=== PATIENT | female | born 1955 | race Caucasian/White ===

== ENCOUNTER 2017-02-05 09:58 | Inpatient (IN) ==
[2017-02-05] MEDS ORDERED: MORPHINE 2 MG/1 ML SYRINGE IV PRN (12:18)
[2017-02-05] MEDS ORDERED: ONDANSETRON 4 MG/2 ML VIAL IV PRN (12:18)
[2017-02-05] MEDS ORDERED: ALBUTEROL 2.5 MG/3 ML NEB RESP TX PRN (12:18)
[2017-02-05 12:23] LABS: ABG Base Excess -4.5 MMOL/L (-2.5-2.5); ABG HCO3 21.1 MMOL/L (20-26); ABG Oxygen Saturation 99.7 % (95-100); ABG PCO2 40.9 MM HG (35-48); ABG PH 7.331 (7.35-7.45); ABG TCO2 22.4 MMOL/L (23-27)
[2017-02-05 12:24] LABS: Basophils % 0.2 % (0.0-0.8); Hematocrit 40.6 VOL% (35.7-47.0); Hemoglobin 13.5 GM/DL (12.0-16.0); Immature Granulocytes % 0.8 %; Immature Granulocytes Absolute 0.17 #; Lymphocytes # 1.2 10*3/uL (1.4-4.0); Lymphocytes % 5.5 % (21.3-54.2); Mean Corpuscular HGB Conc 33.3 GM/DL (32-36); Mean Corpuscular Hemoglobin 30 PG (27-34); Mean Corpuscular Volume 90.8 FL (87-102); Mean Platelet Volume 9.7 FL (9.6-12.0); Monocytes # 2.2 10*3/uL (0.11-0.8); Monocytes % 10.1 % (1.7-12.7); Neutrophils # 18.3 10*3/uL (1.4-7.4); Neutrophils % 83.4 % (38.7-73.9); Platelet Count 384 T/CUMM (130-400); Red Blood Count 4.47 MC/CUMM (3.8-5.5); Red Cell Distribution Width 12.6 % (9.3-17.3); White Blood Count 21.9 T/CUMM (4-12)
[2017-02-05] MEDS ORDERED: ACETAMINOPHEN 500 MG TABLET PO PRN (12:26)
[2017-02-05] MEDS ORDERED: PANTOPRAZOLE 40 MG VIAL IV SCH (12:30)
[2017-02-05] MEDS ORDERED: PROPOFOL 1,000 MG/100 ML BOTTLE IV SCH (12:30)
[2017-02-05] MEDS ORDERED: cefTRIAXone 2,000 MG in SODIUM CHLORIDE 0.9% 100 ML IV SCH (12:30)
[2017-02-05] MEDS ORDERED: LACTATED RINGERS 1,000 ML IV SCH (12:30)
--- NOTE | 2017-02-05 12:30 | EKG Report ---
Stationary ECG Study [facility] Test Date: 02/05/2017 12:30:24 PM Pat Name: TANNER SHAFER Department: Room: 121 Gender: F Emt/Dispatcher: JENNIFER : 1955 Requested by: Dixie Wetzel Order Number: [id number] Reading MD: CHANCE CHARLES Intervals [place] Rate: 106 P: -2 NH: 119 QRS: 47 QRSD: 84 T: 215 QT: 342 QTc: 404 Interpretive Statements SINUS TACHYCARDIA WITH SHORT NH INTERVAL ST DEVIATION AND MODERATE T-WAVE ABNORMALITY, CONSIDER INFEROLATERAL ISCHEMIA Electronically Signed On 02-07-17 07:07:53 CDT by CHANCE CHARLES [email or web address]
--- NOTE | 2017-02-05 12:36 | Hospitalist History & Physical ---
Assessment and Plan (1) Coma Status: Acute Assessment and plan: 1)found down/coma- Head CT unremarkable. No clues from history as to why she is down, only recent complaint is headache. Now with WBC 21,000, mottled/rash on skin. Begin antibiotics empirically for meningitis. Vanc, Ceftriaxone, ampicillin, acyclovir. LP today. BCx, UCx. Droplet precautions. also r/o AL. consult neuro when available. May need further imaging, EEG depending on events/results. 2)GIB- seen at [facility]. Start protonix, consult GI. H&H look good on CBC here. 3)DAMIAN- received IVF resuscitation at [facility], continue with LR at 100. recheck in am. Baseline creatinine unknown. 4)sepsis- lactic acidosis- recheck pending. cultures and antibiotics as above. 5)acute respiratory failure- on vent. Consult pulmonary. CXR and ABG pending. 6)critically ill, full code. Current Visit: Yes (2) GIB (gastrointestinal bleeding) Status: Acute Current Visit: Yes (3) Mottled skin Status: Acute Current Visit: Yes (4) Sepsis Status: Acute Current Visit: Yes (5) Respiratory failure requiring intubation Status: Acute Current Visit: Yes History of Present Illness Chief complaint: found down History of present illness: Ms. Mercedes is a 61 year old female who was found down by family friend around 6:30 this morning in her bathroom. NO sign of vomiting or bleeding. She was rushed to [facility] ER where she had a large melanotic stool, GCS of 6, required intubation, femoral TLC was placed. She was given some sedation but at this time we don't know when or what. She remains unresponsive as at presentation. Some brown fluid form NGT here, but we don't know what they got when the NGT was placed. She had normal H&H, lactic acid 3.1. She was not hypotensive. She received volume resuscitation. She was transferred here. Recently- in the last week- she saw several party host/hostess and doctors for headache. Her BP was elevated on those visits and she was started on BP meds, and then medicine for headache. She was taking some Motrin over the last week. She has no history of GIB, cardiac disease, DAMIAN. Labs/CXR/TandS/lactic acid/UA /UDS/EKG pending. CT head at [facility] without acute findings per report. It is being loaded now for review here. Notable on exam is her depressed level of consciousness, and mottling/purple changes on her breasts and lower extremities though her skin is warm. We have assumed that she is full code. Allergies Allergy/AdvReac Type Severity Reaction Status Date / Time Unable to Obtain Allergy Verified 02/05/17 12:18 Medical,Surgical,& Family Hx - Medical History Cardio: History of: Hypertension - Surgical History Additional Surgical History: family denies surgery but she has an abdominal midline scar. - Family History Family History: Reports;: Additional Family History Additional Family History: unknown. patient unable to answer and family friends don't know. - Social History Smoking Status: Smoker, status unknown Frequency of Alcohol Use: None Marital Status: Single Lives With:: friends 12 point system: reviewed and no additional remarkable complaints except as stated Exam - Constitutional General appearance: normal weight, no acute distress - Head Head exam: Present: normocephalic, atraumatic - Eye Eye exam: Absent: scleral icterus Pupils: Present: YOGI - ENT ENT exam: Present: normal external ear exam - Neck Neck exam: Absent: lymphadenopathy - Respiratory Respiratory exam: Present: clear to auscultation bilaterally - Cardiovascular Cardiovascular exam: Present: regular rate and rhythm - GI/Abdominal GI/Abdominal exam: Present: normal bowel sounds, soft. Absent: distended, guarding, rebound - Extremities Exam Extremities exam: Present: other (mottled lower extremities and breasts, but skin is warm). Absent: edema - Neurological Exam Neurological exam: Present: altered - Skin Skin exam: Present: warm, mottled, rash Results - Labs CBC & BMP: 02/05/17 12:21 Lab Results: I have reviewed the past 24 hour labs Quality Measures - VTE Contraindication to Pharmacological VTE Prophylaxis: Active Bleeding
[2017-02-05 12:39] LABS: Albumin 2.5 G/DL (3.4-5.0); Bilirubin,Total 0.5 MG/DL (0.2-1.0); Calcium 7.8 MG/DL (8.5-10.1); Magnesium 2.1 MG/DL (1.8-2.4); Total Protein 5.2 G/DL (6.4-8.3)
[2017-02-05 12:40] LABS: Lactic Acid 1.2 MMOL/L (0.4-2.0)
--- NOTE | 2017-02-05 12:41 | XRay Report ---
XR chest 1V portable Indication: Intubated. Chest 1 view: Endotracheal tube terminates 4 cm cephalad of mike. NG tube extends to the stomach. Heart size is normal. Lungs are hypoinflated but otherwise clear. Impression: Lines and tubes as described. PROCEDURE INTERPRETED AT [facility] DEPARTMENT OF RADIOLOGY Final Report Signed by: Hosea Miller M.D.
[2017-02-05 12:54] LABS: Band Neutrophils 1 % (0-10); Lymphocytes 5 % (20-55); Segmented Neutrophils 84 % (50-85); Total Cells Counted 100
[2017-02-05 12:55] LABS: Hypochromasia Slight
[2017-02-05] MEDS ORDERED: AMPICILLIN INJ 2,000 MG in SODIUM CHLORIDE 0.9% 100 ML IV SCH (13:00)
[2017-02-05 13:20] LABS: INR 1.3; PT Patient Result 13.7 SECS
[2017-02-05] MEDS ORDERED: ACYCLOVIR INJ 1,000 MG in SODIUM CHLORIDE 0.9% 250 ML IV SCH (14:00)
--- NOTE | 2017-02-05 14:57 | IR History and Physical Update ---
IR Pre-Procedure - History and Physical H&P was reviewed, the patient examined and there: are no changes in the patients condition since last H&P was completed. Reason for procedure:: 61 yo F found down, unresponsive, had CT at [facility]. CT reviewed and mild hydrocephalus noted. In regards to LP, no obstructive mass in the region of the brain stem, 4th or 3rd ventricles present. Risk of LP minimal, and need for LP emergent for diagnostic information. - Dictation Physical: refer to H&P completed by admitting physician - Physical Exam Mental Status: other (intubated) - Sedation IR anesthesia plan for sedation: none ASA Class: V (emergent) - Risks Risks: Procedures explained. Risks discussed include, but not limited to, the following:[ bleeding, CSF leak, brain injury] All questions answered. The following alternatives were discussed:[ none] Consent obtained from: other (granddaughter)
[2017-02-05] MEDS ORDERED: VANCOMYCIN INJ 1,000 MG in SODIUM CHLORIDE 0.9% 250 ML IV SCH (15:00)
--- NOTE | 2017-02-05 15:11 | Post Interventional Procedure ---
Pre-op diagnosis: AMS, obtunded, h/o MA, found down at home Post-op diagnosis: same Procedure: LP w/ fluoro Flouroscopy: 0.8 min Radiologist: Hosea Miller Anesthesia: local Specimens: other (8 cc xanthochromic CSF to lab) Estimated blood loss: none Complications: none Condition: critical Description/Findings: Opening pressure 18 cm-water Assessment and Plan - Time spent with patient Time spent with patient: Less than 30 minutes (1) Coma Status: Acute Current Visit: Yes
--- NOTE | 2017-02-05 15:41 | Interventional Radiology Rpt ---
IR lumbar puncture diagnostic Indication: Found down, GCS 6, history of recent headache. Now intubated, unresponsive. Lumbar puncture with fluoroscopy Description: Formal timeout was performed. Maximum sterile barrier technique used. The patient was placed left lateral decubitus on the fluoroscopy table. The low back was prepped and draped in a sterile fashion. A midline lumbar puncture was then performed at the L3-4 interspace using a 22-gauge spinal needle. Fluoroscopic guidance was used and a captured image documents the needle position. An opening pressure of 18 cm water was obtained. 8 cc clear, xanthochromic CSF was withdrawn and sent to laboratory. Needle was removed and a bandage placed the puncture site. Fluoroscopy time: 0.8 minutes. Impression: Lumbar puncture as described. Xanthochromic CSF. PROCEDURE INTERPRETED AT [facility] DEPARTMENT OF RADIOLOGY Final Report Signed by: Hosea Miller M.D.
[2017-02-05] MEDS: POTASSIUM CHLORIDE RIDER 20 MEQ in PREMIX 1 EACH IV SCH ×2 (16:19→17:00)
[2017-02-05 16:22] LABS: Glucose,CSF 39 MG/DL (40-70)
--- NOTE | 2017-02-05 16:35 | Discharge Summary ---
Hospital Course - Hospital Course Hospital Course: Mrs Mercedes was a direct transfer to our ICU this morning from [facility]. She presented there after being found down by her significant other around 6 :30 am. In the preceeding week she has seen several health care providers compalining of headache and was prescribed medicine for HTN which was a new diagnosis. She was intubated at [facility] for GCS of 6. The history we have is from her sig other. Treatment for sepsis was started and she was given antibiotics as listed below. On LP she had xanthochromia and when our radiologist reviewed the CT head from [facility] and compared it to the CT head from 01/30 it showed the development of acute hydrocephalus. The formal results of the head CT are still pending, but there was xanthochromia at time of tap. She needs to see a neurosurgeon as she may have had an aneurysmal bleed and may need intervention also for the hydrocephalus. While here: No hypotension, initial lactic acid was 3.1. Repeat here 1.2. Vanc, amp, ceftriaxone and acyclovir given. Mottling/rash noted on her lower extremities. LP obtained. She was intubated at [facility] ER for GCS of 6 and has been stable on the vent. She has made no urine. She recived IVF resuscitation at [facility], repeat bolus of LR here. She had large BM at [facility] described as melena. That has not recurred here and her Hgb is stable at 13. Troponin is 0.46, diffuse ST depression in inferior and lateral leads. Dr Tripathi talked to her family to let them know of the developments. I have arranged transfer to [facility] to Dr Johnston for neurosurgery. - Time spent with patient Time with patient DS: Greater than 30 minutes (documentation, medicine reconciliation, discharge planning with SW for transfer took 40 minutes.) Diagnosis - Discharge Diagnosis (1) Coma Status: Acute (2) GIB (gastrointestinal bleeding) Status: Acute (3) Mottled skin Status: Acute (4) Sepsis Status: Acute (5) Respiratory failure requiring intubation Status: Acute (6) acute hydrocephalus Status: Acute (7) xanthochromia in CSF Status: Acute Discharge Plan - Discharge Data Disposition: Disch/Xfer-[facility] Hos Condition at Discharge: Critical - Discharge Medications New cefTRIAXone [Rocephin] 2,000 mg IV Q12H vial Morphine Inj 2 mg IV Q4H PRN syringe PRN Reason: Pain Severe (8-10) Ondansetron Inj [Zofran Inj] 4 mg IV Q4H PRN vial PRN Reason: Nausea Pantoprazole Inj [Protonix Inj] 40 mg IV Q12H vial Potassium Chloride Bridger 20 meq IV Q2H Acetaminophen Tab [Tylenol Tab] 500 mg PO Q6H PRN tablet PRN Reason: Fever, Headache, Mild Pain Acyclovir Inj [Zovirax Inj] 1,000 mg IV Q12H vial Albuterol Neb [Proventil Neb] 2.5 mg RESP TX RT Q1H PRN PRN Reason: Shortness Of Breath/Wheezing Ampicillin Inj 2,000 mg IV Q6H vial Vancomycin Inj 1,000 mg IV Q48H vial - Follow Up or Referral - Forms/Instructions Exam - Constitutional Vitals: Period Temp Pulse Resp BP Sys/Ureña Pulse Ox Last 24 Hr 19-32 General appearance: normal weight, no acute distress (moves right hand a bit. No sedation since intubation. ) - Eye Eye exam: Absent: scleral icterus Pupils: Present: YOGI - ENT ENT exam: Present: normal external ear exam - Neck Neck exam: Present: normal inspection. Absent: lymphadenopathy - Respiratory Respiratory exam: Present: clear to auscultation bilaterally - Cardiovascular Cardiovascular exam: Present: regular rate and rhythm, tachycardia - GI/Abdominal GI/Abdominal exam: Present: normal bowel sounds, soft. Absent: tenderness - Extremities Exam Extremities exam: Absent: edema - Skin Skin exam: Present: mottled, rash Discharge Results Procedures and tests throughout hospitalization: Pending Orders 02/05/17 12:20 Blood Culture Stat Urinalysis Stat Urine Culture Routine 02/05/17 12:21 Stool Culture Routine cdiff [C. Diff Toxins A & B] Stat 02/05/17 12:22 Viral Culture, Non-Respiratory Stat 02/05/17 12:23 Herpes Simplex Virus,PCR,CSF Stat 02/05/17 13:30 CSF Culture and Gram Stain Stat Cell Count w Diff, CSF Stat Fungal Culture w/ Prep Stat Glucose,CSF Stat Meningitis Ags w/CSF Cult/Smea Stat Total Protein,CSF Stat 02/06/17 04:00 XR chest 1V portable IN AM Arterial Blood Gas IN AM Comp Blood Count Auto Diff IN AM Comprehensive Metabolic Panel IN AM 02/07/17 04:00 Comp Blood Count Auto Diff IN AM Comprehensive Metabolic Panel IN AM 02/08/17 04:00 Comp Blood Count Auto Diff IN AM Comprehensive Metabolic Panel IN AM Labs on day of discharge: Labs from last 24 hours 02/05/17 02/05/17 02/05/17 Unknown 13:30 12:41 WBC RBC Hgb Hct MCV MCH MCHC RDW Plt Count MPV Neut % (Auto) Lymph % (Auto) Isabella % (Auto) Eos % (Auto) Baso % (Auto) Neut # (Auto) Lymph # (Auto) Isabella # (Auto) Eos # (Auto) Baso # (Auto) Total Counted Immature Gran % Nucleated RBC % Immature Gran # Segmented Neutrophils Band Neutrophils Lymphocytes Monocytes Nucleated RBCs # Hypochromasia Morphology Comment INR PT Patient/Control Mix ABG pH ABG pCO2 ABG pO2 ABG HCO3 ABG Total CO2 ABG O2 Saturation ABG Base Excess Sodium Potassium Chloride Carbon Dioxide Anion Gap BUN Creatinine GFR Calculation BUN/Creatinine Ratio Glucose Hemoglobin A1c Calculated Osmolality Lactic Acid Calcium Magnesium Total Bilirubin AST ALT Alkaline Phosphatase Ammonia Troponin I Total Protein Albumin Globulin Albumin/Globulin Ratio Lipase 74.0 CSF Glucose 39 L CSF Total Protein 118 H Blood Type O POSITIVE Antibody Screen Negative 02/05/17 02/05/17 02/05/17 12:41 12:41 12:23 WBC RBC Hgb Hct MCV MCH MCHC RDW Plt Count MPV Neut % (Auto) Lymph % (Auto) Isabella % (Auto) Eos % (Auto) Baso % (Auto) Neut # (Auto) Lymph # (Auto) Isabella # (Auto) Eos # (Auto) Baso # (Auto) Total Counted Immature Gran % Nucleated RBC % Immature Gran # Segmented Neutrophils Band Neutrophils Lymphocytes Monocytes Nucleated RBCs # Hypochromasia Morphology Comment INR 1.3 PT Patient/Control Mix 13.7 ABG pH ABG pCO2 ABG pO2 ABG HCO3 ABG Total CO2 ABG O2 Saturation ABG Base Excess Sodium Potassium Chloride Carbon Dioxide Anion Gap BUN Creatinine GFR Calculation BUN/Creatinine Ratio Glucose Hemoglobin A1c 6.5 H Calculated Osmolality Lactic Acid Calcium Magnesium Total Bilirubin AST ALT Alkaline Phosphatase Ammonia Troponin I 0.460 H Total Protein Albumin Globulin Albumin/Globulin Ratio Lipase CSF Glucose CSF Total Protein Blood Type Antibody Screen 02/05/17 02/05/17 02/05/17 12:23 12:21 12:21 WBC RBC Hgb Hct MCV MCH MCHC RDW Plt Count MPV Neut % (Auto) Lymph % (Auto) Isabella % (Auto) Eos % (Auto) Baso % (Auto) Neut # (Auto) Lymph # (Auto) Isabella # (Auto) Eos # (Auto) Baso # (Auto) Total Counted Immature Gran % Nucleated RBC % Immature Gran # Segmented Neutrophils Band Neutrophils Lymphocytes Monocytes Nucleated RBCs # Hypochromasia Morphology Comment INR PT Patient/Control Mix ABG pH 7.331 L ABG pCO2 40.9 ABG pO2 365.0 H ABG HCO3 21.1 ABG Total CO2 22.4 L ABG O2 Saturation 99.7 ABG Base Excess -4.5 L Sodium 143 Potassium 3.0 L Chloride 106 Carbon Dioxide 25 Anion Gap 15.0 BUN 67 H Creatinine 2.00 H GFR Calculation 27 BUN/Creatinine Ratio 33.00 H Glucose 122 H Hemoglobin A1c Calculated Osmolality 304.0 Lactic Acid 1.2 Calcium 7.8 L Magnesium 2.1 Total Bilirubin 0.50 AST 60 H ALT 21 Alkaline Phosphatase 226 H Ammonia 30 Troponin I Total Protein 5.2 L Albumin 2.5 L Globulin 2.7 Albumin/Globulin Ratio 0.9 L Lipase CSF Glucose CSF Total Protein Blood Type Antibody Screen 02/05/17 12:21 WBC 21.9 H RBC 4.47 Hgb 13.5 Hct 40.6 MCV 90.8 MCH 30 MCHC 33.3 RDW 12.6 Plt Count 384 MPV 9.7 Neut % (Auto) 83.4 H Lymph % (Auto) 5.5 L Isabella % (Auto) 10.1 Eos % (Auto) 0.0 Baso % (Auto) 0.2 Neut # (Auto) 18.3 H Lymph # (Auto) 1.2 L Isabella # (Auto) 2.2 H Eos # (Auto) 0.0 Baso # (Auto) 0.0 Total Counted 100 Immature Gran % 0.8 Nucleated RBC % 0.0 Immature Gran # 0.17 Segmented Neutrophils 84 Band Neutrophils 1 Lymphocytes 5 L Monocytes 10 Nucleated RBCs # 0.00 Hypochromasia Slight Morphology Comment INR PT Patient/Control Mix ABG pH ABG pCO2 ABG pO2 ABG HCO3 ABG Total CO2 ABG O2 Saturation ABG Base Excess Sodium Potassium Chloride Carbon Dioxide Anion Gap BUN Creatinine GFR Calculation BUN/Creatinine Ratio Glucose Hemoglobin A1c Calculated Osmolality Lactic Acid Calcium Magnesium Total Bilirubin AST ALT Alkaline Phosphatase Ammonia Troponin I Total Protein Albumin Globulin Albumin/Globulin Ratio Lipase CSF Glucose CSF Total Protein Blood Type Antibody Screen DS: Provider Date of admission: 02/05/17 11:51 Primary care physician: . No PCP Attending physician on admission: Mary Tripathi MD Consults: 02/05/17 12:21 Consult to Physician [CONS] Routine Comment: resp failure Consulting Provider: Amaya Martin Consult Notification Comment: notified Dr. Martin of consult via phone on @ 0349 02/05/17 12:56 Consult to Pharmacy [CONS] Routine Reason for Pharmacy Consult: Dose/Manage Vancomycin Discharging clinician: Dixie Wetzel MD
--- NOTE | 2017-02-05 16:52 | Event Note ---
critical care time-2 hours I went to the LP and saw the xanthochromia, reviewed the head CT with the radiologist and discussed need for transfer with him. She has not had hypotension but continues to have unchanging pattern of mottling /rash on her lower extremities and breasts. Her LP results from lab are not available yet. I have addressed her tachycardia and anuria with repeat bolus of IVF. She still has not made urine and we were unable to obtain UDS or UA and culture. I have been in consultation with her nurse. I sought numbers and have called 4 different institutions to transfer her. I have coordinated with the social science professor to plan the transfer. I have now found a place with neurosurgery at [facility] who will take her. She will fly by helicopter as they request. Her family has been informed and are agreeable with the plan.
[2017-02-05 17:15] LABS: Lymphocytes,CSF 94 %; Neutrophils,CSF 6 %; Red Blood Cell,CSF 283 C/CUMM; White Blood Cell,CSF 9 C/CUMM
[2017-02-05 17:16] LABS: Appearance,CSF Clear
[2017-02-07 10:02] VITALS: BP 120/60
== END 2017-02-05 18:45 | disposition hospice, home (50) | DRG 871 ==
LOC: N.CC 11:51 → SUATTDRO 11:51 → N.CC 15:28
PROVIDERS: ADMIT Family Medicine; ATTEND Internal Medicine